=== PATIENT | female | born 1990 | race American Indian/Alaskan Native ===

== ENCOUNTER 2016-08-15 13:46 | Emergency (ER) | payer SELFPAY ==
[2016-08-15] MEDS ORDERED: MOTRIN PO ONE (19:24)
--- NOTE | 2016-08-15 20:30 | Emergency Department Report ---
ED ENT HPI - General Chief complaint: Upper Respiratory Infection Stated complaint: KNOT IN THROAT/SWELLING/BERE Time Seen by Provider: 08/15/16 19:21 Source: patient Mode of arrival: Ambulatory Limitations: No Limitations - History of Present Illness Initial comments: 26-year-old female past medical history obesity, mononucleosis presents with complaint of one month of sensation of anterior throat discomfort. Patient is awake alert and oriented 3 not in acute distress states that she came to the ED because she is unclear on the symptoms of mononucleosis. Patient states she had an episode of mononucleosis within the last year and over the last 3 weeks has experienced minor throat discomfort. Patient states that she wanted reassurance that this is not a severe throat infection. Patient is speaking in full sentences no wheezing no stridor denies any nausea vomiting no chest pain no palpitations. Denies any abdominal pain. No rash reported. Denies using any medicines for her sore throat. Denies any difficulty swallowing liquids or solids. MD complaint: sore throat Onset/Timin -: month(s) Location: throat Severity: moderate Quality: aching Context-Epistaxis: history of similar - Related Data Previous Rx's Medication Instructions Recorded Last Taken Type ALBUTEROL Inhaler [ProAir HFA 2 puff IH QID PRN #1 dispenser 02/25/16 Unknown Rx Inhaler] ALBUTEROL NEB's [Proventil 0.083% 2.5 mg IH PRN #12 ml 02/25/16 Unknown Rx NEBS] Prednisone [predniSONE 10 mg 10 mg PO .TAPER #1 tab.ds.pk 02/25/16 Unknown Rx (6-Day Pack, 21 Tabs)] Naproxen [Naprosyn TAB] 500 mg PO BID PRN #20 tablet 08/15/16 Unknown Rx Allergies Allergy/AdvReac Type Severity Reaction Status Date / Time No Known Allergies Allergy Verified 02/25/16 14:14 ED Dental HPI - General Chief complaint: Upper Respiratory Infection Stated complaint: KNOT IN THROAT/SWELLING/BERE Time Seen by Provider: 08/15/16 19:21 Source: patient Mode of arrival: Ambulatory Limitations: No Limitations - Related Data Previous Rx's Medication Instructions Recorded Last Taken Type ALBUTEROL Inhaler [ProAir HFA 2 puff IH QID PRN #1 dispenser 02/25/16 Unknown Rx Inhaler] ALBUTEROL NEB's [Proventil 0.083% 2.5 mg IH PRN #12 ml 02/25/16 Unknown Rx NEBS] Prednisone [predniSONE 10 mg 10 mg PO .TAPER #1 tab.ds.pk 02/25/16 Unknown Rx (6-Day Pack, 21 Tabs)] Naproxen [Naprosyn TAB] 500 mg PO BID PRN #20 tablet 08/15/16 Unknown Rx Allergies Allergy/AdvReac Type Severity Reaction Status Date / Time No Known Allergies Allergy Verified 02/25/16 14:14 ED Review of Systems ROS: Stated complaint: KNOT IN THROAT/SWELLING/BERE Other details as noted in HPI Constitutional: denies: chills, fever Eyes: denies: eye pain, eye discharge, vision change ENT: throat pain. denies: ear pain Respiratory: denies: cough, shortness of breath, wheezing Cardiovascular: denies: chest pain, palpitations Endocrine: no symptoms reported Gastrointestinal: denies: abdominal pain, nausea, diarrhea Genitourinary: denies: urgency, dysuria, discharge Musculoskeletal: denies: back pain, joint swelling, arthralgia Skin: denies: rash, lesions Neurological: denies: headache, weakness, paresthesias Psychiatric: denies: anxiety, depression Hematological/Lymphatic: denies: easy bleeding, easy bruising ED Past Medical Hx - Past Medical History Hx Asthma: Yes Additional medical history: Mononucleosis - Surgical History Past Surgical History?: No - Social History Smoking Status: Never Smoker Substance Use Type: None - Medications Home Medications: Home Medications Medication Instructions Recorded Confirmed Last Taken Type ALBUTEROL Inhaler [ProAir HFA 2 puff IH QID PRN #1 dispenser 02/25/16 Unknown Rx Inhaler] ALBUTEROL NEB's [Proventil 0.083% 2.5 mg IH PRN #12 ml 02/25/16 Unknown Rx NEBS] Prednisone [predniSONE 10 mg 10 mg PO .TAPER #1 tab.ds.pk 02/25/16 Unknown Rx (6-Day Pack, 21 Tabs)] Naproxen [Naprosyn TAB] 500 mg PO BID PRN #20 tablet 08/15/16 Unknown Rx ED Physical Exam - General Limitations: No Limitations General appearance: alert, in no apparent distress - Head Head exam: Present: atraumatic, normocephalic - Eye Eye exam: Present: normal appearance, PERRL, EOMI - ENT ENT exam: Present: mucous membranes moist - Neck Neck exam: Present: normal inspection, lymphadenopathy (mild anterior cervicallymphadenopathy) - Respiratory Respiratory exam: Present: normal lung sounds bilaterally. Absent: respiratory distress - Cardiovascular Cardiovascular Exam: Present: regular rate, normal rhythm. Absent: systolic murmur, diastolic murmur, rubs, gallop - GI/Abdominal GI/Abdominal exam: Present: soft, normal bowel sounds - Extremities Exam Extremities exam: Present: normal inspection - Back Exam Back exam: Present: normal inspection - Neurological Exam Neurological exam: Present: alert, oriented X3, CN II-XII intact, normal gait - Psychiatric Psychiatric exam: Present: normal affect, normal mood - Skin Skin exam: Present: warm, dry, intact, normal color. Absent: rash ED Course Vital Signs 08/15/16 08/15/16 14:39 19:32 Temperature 98.4 F Pulse Rate 73 Respiratory 18 20 Rate Blood Pressure 133/93 O2 Sat by Pulse 100 Oximetry ED Medical Decision Making - Medical Decision Making A/P: Pharyngitis 1- patient has clinical signs potentially of mononucleosis mild cervical adenopathy has history of mononucleosis denies any fevers chills no significant evidence of pharyngitis no abdominal pain. 2-patient to follow up with primary care 3-naproxen when necessary 4-I educated patient on symptoms of mononucleosis Critical care attestation.: If time is entered above; I have spent that time in minutes in the direct care of this critically ill patient, excluding procedure time. ED Disposition Clinical Impression: Cervical lymphadenopathy Disposition: DISCHARGED TO HOME OR SELFCARE Is pt being admited?: No Does the pt Need Aspirin: No Condition: Stable Instructions: Mononucleosis (ED), Lymphadenopathy (ED) Prescriptions: Naproxen [Naprosyn TAB] 500 mg PO BID PRN #20 tablet PRN Reason: Pain Referrals: [facility] [Outside] - 3-5 Days [facility] [Outside] - 3-5 Days Forms: Work/School Release Form(ED) Time of Disposition: 20:39
[2016-08-15 21:00] VITALS: BP 132/88
== END 2016-08-15 21:00 | disposition home or self-care (01) ==
LOC: ED 13:46
DX: R59.0 Localized enlarged lymph nodes (principal); J45.909 Unspecified asthma, uncomplicated
CPT/HCPCS: 87116; 87430; 99282

== ENCOUNTER 2017-04-01 08:22 | Emergency (ER) | payer OTHER ==
[2017-04-01 08:33] VITALS: BP 119/70
[2017-04-01 09:01] LABS: Bacteria,Urine 1+ /HPF (Negative); Bilirubin,Urine NEG (Negative); Blood,Urine SM (Negative); Ketones,Urine NEG (Negative); Leukocyte Esterase,Urine LG (Negative); Mucus,Urine 1+ /HPF; Nitrite,Urine NEG (Negative); Urobilinogen,Urine < 2.0 mg/dL (<2.0)
[2017-04-01] MEDS ORDERED: ROCEPHIN IM ONE (09:33)
[2017-04-01] MEDS ORDERED: XYLOCAINE 1% MPF 5 mL INFILTRATI ONE (09:33)
[2017-04-01] MEDS ORDERED: ZITHROMAX PO ONE (09:33)
--- NOTE | 2017-04-01 09:44 | Emergency Department Report ---
ED Dysuria HPI - HPI Chief Complaint: Urogenital-Female Stated Complaint: VAG DISCHARGE Time Seen by Provider: 04/01/17 08:55 Duration: 3 Days Severity: Mild (NEW SEX PARTNER; THIS PERSONS X IS W A MAN WHO HAS SEX W MEN) Symptoms: Dysuria: No, Frequency: No, Suprapubic Pain: No, Flank Pain: No, Fever : No, Hematuria: No, Abdominal Pain: No, Previous UTI's: No ED Review of Systems ROS: Stated complaint: VAG DISCHARGE Other details as noted in HPI Comment: All other systems reviewed and negative Genitourinary: discharge (YELLOW) ED Past Medical Hx - Past Medical History Previous Medical History?: Yes Hx Asthma: Yes Additional medical history: Mononucleosis - Surgical History Past Surgical History?: No - Social History Smoking Status: Never Smoker Substance Use Type: None - Medications Home Medications: Home Medications Medication Instructions Recorded Confirmed Last Taken Type ALBUTEROL Inhaler [ProAir HFA 2 puff IH QID PRN #1 dispenser 02/25/16 Unknown Rx Inhaler] ALBUTEROL NEB's [Proventil 0.083% 2.5 mg IH PRN #12 ml 02/25/16 Unknown Rx NEBS] Prednisone [predniSONE 10 mg 10 mg PO .TAPER #1 tab.ds.pk 02/25/16 Unknown Rx (6-Day Pack, 21 Tabs)] Naproxen [Naprosyn TAB] 500 mg PO BID PRN #20 tablet 08/15/16 Unknown Rx Dysuria Exam - Exam General: Vital signs noted. No distress. Alert and acting appropriately. Exam: Yes Moist Mucous Membranes, No CVA Tenderness, No Abdominal Tenderness, No Rigidity or Guarding Labs: Lab Results 04/01/17 Range/Units 08:47 Urine Color Yellow (Yellow) Urine Turbidity Slightly-cloudy (Clear) Urine pH 5.0 (5.0-7.0) Ur Specific [place] 1.026 (1.003-1.030) Urine Protein 30 mg/dl (Negative) mg/dL Urine Glucose (UA) Neg (Negative) mg/dL Urine Ketones Neg (Negative) mg/dL Urine Blood Sm (Negative) Urine Nitrite Neg (Negative) Urine Bilirubin Neg (Negative) Urine Urobilinogen < 2.0 (<2.0) mg/dL Ur Leukocyte Esterase Lg (Negative) Urine WBC (Auto) 179.0 H (0.0-6.0) /HPF Urine RBC (Auto) 27.0 (0.0-6.0) /HPF U Epithel Cells (Auto) 2.0 (0-13.0) /HPF Urine Bacteria (Auto) 1+ (Negative) /HPF Urine Mucus 1+ /HPF ED Course Vital Signs 04/01/17 08:26 Temperature 98.2 F Pulse Rate 91 H Respiratory 18 Rate Blood Pressure 119/70 O2 Sat by Pulse 100 Oximetry - Reevaluation(s) Reevaluation #1: 04/01/17 10:04 PT REQUESTING HIV GIVEN HX- SEE HPI EMPIRIC TX - RO AND AZITHROMYCIN VAG EXAM SKIN RED AND IRRITATED YELLOW NON ODOR. DC ED Medical Decision Making - Medical Decision Making SEE NOTE PREG NEG WET PREP NEG NO DYSURIA NO FEVER NO CVA TENDERNESS VAG DC CONCERN FOR STI HIGH RISK NON PROTECTED EXPOSURE OVER 6 W - Differential Diagnosis STD V BV Critical care attestation.: If time is entered above; I have spent that time in minutes in the direct care of this critically ill patient, excluding procedure time. ED Disposition Clinical Impression: STD (female), Vaginitis Disposition: DC-01 TO HOME OR SELFCARE Is pt being admited?: No Does the pt Need Aspirin: No Condition: Stable Instructions: Safe Sex (ED) Referrals: PRIMARY CARE, [Primary Care Provider] - 3-5 Days MIMI LIAZRRAGA MD [Staff Physician] - 3-5 Days Time of Disposition: 09:43
[2017-04-01 10:25] LABS: HIV-1 Antigen p24 Non React (Non React); HIVR-1/2 Ab Non React (Non React)
== END 2017-04-01 10:34 | disposition home or self-care (01) ==
LOC: ED 08:22
DX: A64 Unspecified sexually transmitted disease (principal); N76.0 Acute vaginitis; J45.909 Unspecified asthma, uncomplicated
CPT/HCPCS: 36415; 81001; 81025; 86592; 87210; 87591; 87806; 96372; 99284; J0696

== ENCOUNTER 2017-08-01 11:51 | Emergency (ER) | payer SELFPAY ==
[2017-08-01 12:36] VITALS: BP 135/67
[2017-08-01] MEDS ORDERED: DUONEB *Not for PRN Use IH ONE (12:37)
--- NOTE | 2017-08-01 15:23 | Emergency Department Report ---
HPI - General Chief Complaint: Adult Asthma Time Seen by Provider: 08/01/17 14:21 - HPI HPI: Patient complains shortness breath and wheezing and out of asthma medication. She is requesting a refill on albuterol nebulizer and inhaler. Denies any chest pain. Denies any fever or chills. She said this started yesterday. She doesn't have a primary care doctor. ED Past Medical Hx - Past Medical History Previous Medical History?: Yes Hx Asthma: Yes Additional medical history: Mononucleosis - Surgical History Past Surgical History?: No - Family History Family history: no significant - Social History Smoking Status: Never Smoker Substance Use Type: None - Medications Home Medications: Home Medications Medication Instructions Recorded Confirmed Last Taken Type ALBUTEROL Inhaler [ProAir HFA 2 puff IH QID PRN #1 dispenser 02/25/16 Unknown Rx Inhaler] ALBUTEROL NEB's [Proventil 0.083% 2.5 mg IH PRN #12 ml 02/25/16 Unknown Rx NEBS] Prednisone [predniSONE 10 mg 10 mg PO .TAPER #1 tab.ds.pk 02/25/16 Unknown Rx (6-Day Pack, 21 Tabs)] Naproxen [Naprosyn TAB] 500 mg PO BID PRN #20 tablet 08/15/16 Unknown Rx ED Review of Systems ROS: Stated complaint: ASTHMA Other details as noted in HPI Comment: All other systems reviewed and negative Constitutional: no symptoms reported ENT: congestion Respiratory: cough, SOB with exertion, wheezing. denies: orthopnea, shortness of breath, SOB at rest, stridor Cardiovascular: denies: chest pain, palpitations, dyspnea on exertion, edema, syncope, paroxysmal nocturnal dyspnea Gastrointestinal: denies: abdominal pain, nausea, vomiting, diarrhea Genitourinary: denies: dysuria, hematuria Musculoskeletal: denies: back pain, joint swelling, arthralgia Skin: denies: rash Neurological: denies: headache, numbness, paresthesias, abnormal gait, vertigo Physical Exam - Physical Exam Vital Signs: Vital Signs 08/01/17 12:32 Temperature 97.3 F L Pulse Rate 82 Respiratory 22 Rate Blood Pressure 135/67 O2 Sat by Pulse 98 Oximetry General: This is a 27-year-old female well-nourished well-developed in no acute distress. Physical Exam: Head: Normocephalic, atraumatic, no abrasion, no bruising and no contusion. Eyes: Biateral pupils equal and reactive to light, bilateral EOM intact.. Bilateral conjunctival and sclera without injection, normal accommodation. No nystagmus Mouth: Mucosa moist, no pharyngeal exudate or erythema. No peritonsillar abscesses. Uvula is midline and oral airways patent. Ears: Bilateral TMs congested without erythema. Bilateral EAC without any redness swelling or drainage. No mastoid bone tenderness Nose: Bilateral nasal mucosa congested with clear drainage. ,Maxillary and frontal sinuses non-tender to palpate. Neck: Supple, No Cervical adenopathy, full range of motion and no C-spine tenderness. No swelling or tracheal deviation normal reflexes Cardiovascular: S1, S2. Regular rate and rhythm. No murmur. Capillary refill is less then 3 seconds. Lungs: Scattered wheezing throughout lung [place]. Normal work of breathing. No chest wall tenderness. No chest contusion. No bruising to chest. Abdomen: Non-tender to palpate in all quadrants, no guarding or rebound tenderness, positive bowel sounds in all quadrants. No CVA tenderness. No hernia, bruit or mass. No rigidity or distention. Extremities: No clubbing, cyanosis or edema. +2 pulses. No neurovascular compromise Skin: Clean, dry and intact. No rash or lesions. Psych: Normal mood and behavior ED Course Vital Signs 08/01/17 12:32 Temperature 97.3 F L Pulse Rate 82 Respiratory 22 Rate Blood Pressure 135/67 O2 Sat by Pulse 98 Oximetry - Reevaluation(s) Reevaluation #1: 08/01/17 15:25 Patient received albuterol and Atrovent in triage area but she still has wheezing. So she'll be given an additional 5 of albuterol, 1 of Atrovent nebulizer and Solu-Medrol injection. Reevaluation #2: 08/01/17 16:10 Patient better after nebulizer treatment and Solu-Medrol. ED Medical Decision Making - Lab Data Lab Results 08/01/17 Range/Units 14:25 Urine Color Yellow (Yellow) Urine Turbidity Clear (Clear) Urine pH 7.0 (5.0-7.0) Ur Specific [place] 1.014 (1.003-1.030) Urine Protein <15 mg/dl (Negative) mg/dL Urine Glucose (UA) Neg (Negative) mg/dL Urine Ketones Neg (Negative) mg/dL Urine Blood Neg (Negative) Urine Nitrite Neg (Negative) Urine Bilirubin Neg (Negative) Urine Urobilinogen < 2.0 (<2.0) mg/dL Ur Leukocyte Esterase Neg (Negative) Urine WBC (Auto) 1.0 (0.0-6.0) /HPF Urine RBC (Auto) 1.0 (0.0-6.0) /HPF U Epithel Cells (Auto) 1.0 (0-13.0) /HPF Urine Mucus Few /HPF - Medical Decision Making ED course: Patient here report that she had run out of her asthma medication which are albuterol inhaler and nebulizer and should like to have a refill and also that she is having an asthma attack. Patient was scattered wheezing to upper lung field she was given albuterol and Atrovent times one and triage area and was given albuterol 5 mg and Atrovent 1 mg nebulizer in ED room. She was also given Solu-Medrol 125 mg IM in the emergency room. Nurses report that patient left room and did not come back. She did get her treatment and that she was feeling better but she did not get prescription because she left. Critical care attestation.: If time is entered above; I have spent that time in minutes in the direct care of this critically ill patient, excluding procedure time. ED Disposition Clinical Impression: Acute asthma exacerbation Qualifiers: Asthma severity: mild Asthma persistence: intermittent Qualified Code(s): J45.21 - Mild intermittent asthma with (acute) exacerbation Disposition: ELOPED Is pt being admited?: No Does the pt Need Aspirin: No Condition: Stable Instructions: Asthma (ED)
[2017-08-01] MEDS ORDERED: PROVENTIL IH ONE (15:24)
[2017-08-01] MEDS ORDERED: ATROVENT IH ONE (15:24)
[2017-08-01 16:53] LABS: Bilirubin,Urine NEG (Negative); Blood,Urine NEG (Negative); Color,Urine Yellow (Yellow); Mucus,Urine FEW /HPF; Protein,Urine <15 mg/dL mg/dL (Negative); Urobilinogen,Urine < 2.0 mg/dL (<2.0)
== END 2017-08-01 17:53 | disposition left against medical advice (07) ==
LOC: ED 11:51
DX: J45.21 Mild intermittent asthma with (acute) exacerbation (principal)
CPT/HCPCS: 81001; 94640; 96372; 99283; J2930

== ENCOUNTER 2019-08-19 19:09 | Emergency (ER) | payer SELFPAY ==
--- NOTE | 2019-08-19 20:08 | Emergency Department Report ---
ED General Adult HPI - General Chief complaint: Skin/Abscess/Foreign Body Stated complaint: BREAST PAIN LUMP AND SWELL x1 WEEK Source: patient Mode of arrival: Ambulatory Limitations: No Limitations - History of Present Illness Initial comments: Patient is a nulliparous 29-year-old morbidly obese -Lith[place] female with a history of asthma presents to the ED with complaint of acute onset persistent bilateral breast pain worse in the left breast with some lumps for the last 1 week. Patient's LMP was August 02, 2019. Patient states that in the last 2 days the pain in the left breast has worsened with the development of the lumps. Patient states that she was concerned because her mother just of breast cancer complications about 3 months ago having been diagnosed with stage IV breast cancer 8 months ago. Patient states that her last mammogram was all normal. Patient denies fever, chills, nausea, vomiting, traumatic injury, heavy lifting, shortness of breath, chest pain, diaphoresis, pain in the axilla regions bilaterally. MD Complaint: Bilateral breast pain, worse on the left breast -: Sudden, week(s) (1) Location: chest (bilateral breasts) Radiation: non-radiation Quality: aching, sharp Consistency: constant Improves with: none Worsens with: none Associated Symptoms: denies other symptoms. denies: confusion, chest pain, c ough, diaphoresis, fever/chills, headaches, loss of appetite, malaise, nausea/vomiting, rash, seizure, shortness of breath, syncope, weakness, other Treatments Prior to Arrival: none - Related Data Previous Rx's Medication Instructions Recorded Last Taken Type ALBUTEROL NEB's [Proventil 0.083% 2.5 mg IH PRN #12 ml 02/25/16 Unknown Rx NEBS] Albuterol INH(or & Nicu Only) 2 puff IH QID PRN #1 dispenser 02/25/16 Unknown Rx [ProAir HFA Inhaler] Prednisone [predniSONE 10 mg 10 mg PO .TAPER #1 tab.ds.pk 02/25/16 Unknown Rx (6-Day Pack, 21 Tabs)] Naproxen [Naprosyn TAB] 500 mg PO BID PRN #20 tablet 08/15/16 Unknown Rx Ibuprofen [Motrin] 800 mg PO Q8HR PRN #30 tablet 08/19/19 Unknown Rx Allergies Allergy/AdvReac Type Severity Reaction Status Date / Time No Known Allergies Allergy Verified 04/01/17 08:26 ED Review of Systems ROS: Stated complaint: BREAST PAIN LUMP AND SWELL x1 WEEK Other details as noted in HPI Constitutional: denies: chills, fever Eyes: denies: eye pain, eye discharge, vision change ENT: denies: ear pain, throat pain Respiratory: other (Bilateral breast pain, worse on left than right). denies: cough, shortness of breath, wheezing Cardiovascular: denies: chest pain, palpitations Endocrine: no symptoms reported Gastrointestinal: denies: abdominal pain, nausea, diarrhea Genitourinary: denies: urgency, dysuria, discharge Musculoskeletal: denies: back pain, joint swelling, arthralgia Skin: denies: rash, lesions Neurological: denies: headache, weakness, paresthesias Psychiatric: denies: anxiety, depression Hematological/Lymphatic: denies: easy bleeding, easy bruising ED Past Medical Hx - Past Medical History Previous Medical History?: Yes Hx Asthma: Yes Additional medical history: Mononucleosis - Surgical History Past Surgical History?: No - Social History Smoking Status: Never Smoker Substance Use Type: Marijuana - Medications Home Medications: Home Medications Medication Instructions Recorded Confirmed Last Taken Type ALBUTEROL NEB's [Proventil 0.083% 2.5 mg IH PRN #12 ml 02/25/16 Unknown Rx NEBS] Albuterol INH(or & Nicu Only) 2 puff IH QID PRN #1 dispenser 02/25/16 Unknown Rx [ProAir HFA Inhaler] Prednisone [predniSONE 10 mg 10 mg PO .TAPER #1 tab.ds.pk 02/25/16 Unknown Rx (6-Day Pack, 21 Tabs)] Naproxen [Naprosyn TAB] 500 mg PO BID PRN #20 tablet 08/15/16 Unknown Rx Ibuprofen [Motrin] 800 mg PO Q8HR PRN #30 tablet 08/19/19 Unknown Rx ED Physical Exam - General Limitations: No Limitations General appearance: alert, in no apparent distress, anxious - Head Head exam: Present: atraumatic, normocephalic, normal inspection - Eye Eye exam: Present: normal appearance, PERRL, EOMI Pupils: Present: normal accommodation - ENT ENT exam: Present: normal exam, normal orophraynx, mucous membranes moist, TM's normal bilaterally, normal external ear exam - Neck Neck exam: Present: normal inspection, full ROM - Respiratory Respiratory exam: Present: normal lung sounds bilaterally, other (Palpable moderate bilateral breast tenderness with palpable lumps in the left breast. Female RN Blankbook Forwarder Ms Varma present). Absent: respiratory distress, wheezes, rales, rhonchi, stridor, chest wall tenderness, accessory muscle use, decreased breath sounds, prolonged expiratory - Cardiovascular Cardiovascular Exam: Present: normal rhythm, tachycardia, normal heart sounds. Absent: systolic murmur, diastolic murmur, rubs, gallop - GI/Abdominal GI/Abdominal exam: Present: soft, normal bowel sounds. Absent: distended, tenderness, guarding, hyperactive bowel sounds, hypoactive bowel sounds, organomegaly - Extremities Exam Extremities exam: Present: normal inspection, full ROM, normal capillary refill - Back Exam Back exam: Present: normal inspection, full ROM. Absent: tenderness, CVA tenderness (R), CVA tenderness (L), muscle spasm, paraspinal tenderness, vertebral tenderness - Neurological Exam Neurological exam: Present: alert, oriented X3, CN II-XII intact, normal gait, reflexes normal - Psychiatric Psychiatric exam: Present: normal affect, normal mood - Skin Skin exam: Present: warm, dry, intact, normal color. Absent: rash ED Course Vital Signs 08/19/19 19:13 Temperature 98.0 F Pulse Rate 100 H Respiratory 18 Rate Blood Pressure 150/87 O2 Sat by Pulse 99 Oximetry ED Medical Decision Making - Medical Decision Making This is a nulliparous 29-year-old morbidly obese -Lithuanian female with a history of asthma presents to the ED with complaint of acute onset persistent bilateral breast pain worse in the left breast with some lumps for the last 1 week. Patient's LMP was August 02, 2019. Patient states that in the last 2 days the pain in the left breast has worsened with the development of the lumps. Patient states that she was concerned because her mother just of breast cancer complications about 3 months ago having been diagnosed with stage IV breast cancer 8 months ago. Patient states that her last mammogram was all normal. In the ED, patient is alert and oriented x3, anxious and tachycardic in triage but in no acute distress. Physical exam was positive for palpable lumps on the left breast with moderate bilateral breast tenderness, worse on the left than right breast. Based on the patient's LMP, history and physical exam findings, patient symptoms are likely due to fibrocystic breast changes or fibrocystic breast disease. Patient advised to take pain medications, and and sure that she follows up with a [employer] physician in 3 to 5 days for reevaluation and consider having another mammogram to rule out any life-threatening emergencies or diseases of the breast. Patient was otherwise advised to return to the ED immediately if symptoms get worse. - Differential Diagnosis Fibrocystic breast disease; Fibrocystic breast changes; Mastitis; Cancer Critical care attestation.: If time is entered above; I have spent that time in minutes in the direct care of this critically ill patient, excluding procedure time. ED Disposition Clinical Impression: Bilateral fibrocystic breast disease (FCBD) Fibrocystic breast changes Qualifiers: Laterality: left Qualified Code(s): N60.12 - Diffuse cystic mastopathy of left breast Disposition: TO HOME OR SELFCARE Is pt being admited?: No Does the pt Need Aspirin: No Condition: Stable Instructions: Breast Care for the Non-breast Feeding Woman (ED), Breast Self- exam (ED) Additional Instructions: Take medication as needed for pain with food, follow-up with the [facility] [employer]PER[employer] physician as advised for further evaluation. Consider having a mammogram in the next 7 to 10 days to further evaluate your breast. Return to the ED immediately if symptoms get worse. Prescriptions: Ibuprofen [Motrin] 800 mg PO Q8HR PRN #30 tablet PRN Reason: Pain , Severe (7-10) Referrals: MILAN BALLESTEROS MD [Staff Physician] - 3-5 Days Time of Disposition: 20:09 Print Language: PERUVIAN
[2019-08-21 12:50] VITALS: BP 136/65
== END 2019-08-19 20:22 | disposition home or self-care (01) ==
LOC: ED 19:09
DX: N60.12 Diffuse cystic mastopathy of left breast (principal); N60.11 Diffuse cystic mastopathy of right breast; J45.909 Unspecified asthma, uncomplicated; F12.10 Cannabis abuse, uncomplicated; Z79.899 Other long term (current) drug therapy
CPT/HCPCS: 99282

== ENCOUNTER 2021-04-07 15:17 | Emergency (ER) | payer SELFPAY ==
[2021-04-07 15:35] VITALS: BP 108/53
--- NOTE | 2021-04-07 18:05 | Emergency Department Report ---
ED General Adult HPI - General Chief complaint: Skin/Abscess/Foreign Body Stated complaint: BREAST TISSUE Time Seen by Provider: 04/07/21 17:27 Source: patient Mode of arrival: Ambulatory Limitations: No Limitations - History of Present Illness Initial comments: 30-year-old female presents to the ER today with complaints of left breast discomfort. Patient states that she is really having this burning sensation in her left breast and pain for the past few months. She states that during her menstrual cycle she noticed that the breast swells and she has noticed some redness to the breast off and on. She states that she has not felt any specific mass she has not seen any bruising or has had any nipple discharge or dimpling to her breasts. She states that she had similar symptoms back in 2019 and had a mammogram and during that time she was diagnosed with fibrocystic breast disease she also has a history of really enlarged breast. She states but was concerned that her mom about a year ago with breast cancer and so she wanted to get checked. She states currently she does not have medical insurance and does not have an [facility]. Her last menstrual cycle was 11 days ago. MD Complaint: Left breast discomfor -: month(s) - Related Data Previous Rx's Medication Instructions Recorded Last Taken Type ALBUTEROL NEB's [Proventil 0.083% 2.5 mg IH PRN #12 ml 02/25/16 Unknown Rx NEBS] Albuterol Mdi (or & Nicu Only) 2 puff IH QID PRN #1 dispenser 02/25/16 Unknown Rx [ProAir HFA Inhaler] Prednisone [predniSONE 10 mg 10 mg PO .TAPER #1 tab.ds.pk 02/25/16 Unknown Rx (6-Day Pack, 21 Tabs)] Naproxen [Naprosyn TAB] 500 mg PO BID PRN #20 tablet 08/15/16 Unknown Rx Ibuprofen [Motrin 800 MG tab] 800 mg PO Q8HR PRN #30 tablet 04/07/21 Unknown Rx Allergies Allergy/AdvReac Type Severity Reaction Status Date / Time No Known Allergies Allergy Verified 04/01/17 08:26 ED Review of Systems ROS: Stated complaint: BREAST TISSUE Other details as noted in HPI Comment: All other systems reviewed and negative Constitutional: denies: chills, diaphoresis, fever, malaise, weakness Eyes: denies: eye pain, eye discharge, vision change ENT: denies: ear pain, throat pain, dental pain, hearing loss, congestion Respiratory: denies: cough, shortness of breath, SOB with exertion, SOB at rest, wheezing Genitourinary: denies: urgency, dysuria, frequency, hematuria, discharge, abnormal menses, dyspareunia Musculoskeletal: denies: back pain, joint swelling, arthralgia Skin: other (Left breast pain and swelling). denies: rash, lesions, change in color, change in hair/nails, pruritus Neurological: denies: headache, weakness, numbness, paresthesias, confusion, abnormal gait, vertigo Psychiatric: denies: anxiety, depression, auditory hallucinations, visual hallucinations, homicidal thoughts, suicidal thoughts Hematological/Lymphatic: denies: easy bruising ED Past Medical Hx - Past Medical History Hx Asthma: Yes Additional medical history: Mononucleosis - Social History Substance Use Type: None - Medications Home Medications: Home Medications Medication Instructions Recorded Confirmed Last Taken Type ALBUTEROL NEB's [Proventil 0.083% 2.5 mg IH PRN #12 ml 02/25/16 Unknown Rx NEBS] Albuterol Mdi (or & Nicu Only) 2 puff IH QID PRN #1 dispenser 02/25/16 Unknown Rx [ProAir HFA Inhaler] Prednisone [predniSONE 10 mg 10 mg PO .TAPER #1 tab.ds.pk 02/25/16 Unknown Rx (6-Day Pack, 21 Tabs)] Naproxen [Naprosyn TAB] 500 mg PO BID PRN #20 tablet 08/15/16 Unknown Rx Ibuprofen [Motrin 800 MG tab] 800 mg PO Q8HR PRN #30 tablet 04/07/21 Unknown Rx ED Physical Exam - General Limitations: No Limitations General appearance: alert, in no apparent distress, obese - Head Head exam: Present: atraumatic, normocephalic, normal inspection - Neck Neck exam: Present: normal inspection, full ROM. Absent: meningismus - Respiratory Respiratory exam: Present: normal lung sounds bilaterally, other (Patient has very large breasts bilaterally. Examination does not show any area of tenderness, no mass, no nipple discharge, no dimpling noted to the tissue, no erythema or bruising noted.). Absent: respiratory distress, wheezes, rales, rhonchi, stridor - Cardiovascular Cardiovascular Exam: Present: regular rate, normal rhythm, normal heart sounds - Neurological Exam Neurological exam: Present: alert, oriented X3, CN II-XII intact, normal gait - Psychiatric Psychiatric exam: Present: normal affect, normal mood - Skin Skin exam: Present: intact ED Course Vital Signs 04/07/21 15:33 Temperature 98.3 F Pulse Rate 83 Respiratory 18 Rate Blood Pressure 108/53 O2 Sat by Pulse 98 Oximetry ED Medical Decision Making - Medical Decision Making Patient does have very large breasts on exam, and she has a known history of fibrocystic breast disease, these could be the cause of her discomfort, but at this time exam does not suggest infection, no appreciation for any mass or lumps, no nipple discharge, no bruising or any other abnormality seen on exam to her breasts. She is not currently breast-feeding. Her last menstrual cycle was 11 days ago and she is not concerned for . Informed patient that the best thing she would need at this time is to have another mammogram done especially to her left breast since she is having symptoms as this would be the test of choice to rule out any abnormality. Unfortunately we are not doing any mammograms through the ER but I will give her a referral to local [facility] to get that done. In the meantime recommend NSAIDs and trying vitamin E to see if help with the pain. Also discussed with her that if her mammogram does come ba ck normal she will have to consider seeing a plastic surgeon to consider breast reduction. Patient expressed on understanding and agree with plan. Patient was stable at time of discharge. Critical care attestation.: If time is entered above; I have spent that time in minutes in the direct care of this critically ill patient, excluding procedure time. ED Disposition Clinical Impression: Breast pain, left, Macromastia, History of fibrocystic disease of breast Disposition: HOME / SELF CARE / HOMELESS Is pt being admited?: No Does the pt Need Aspirin: No Condition: Stable Instructions: Breast Tenderness Additional Instructions: Referral to [facility] will be given to you on your discharge instructions. I do recommend following up with them once for outpatient mammogram to further evaluate your breast pain. In the meantime I recommend that you take ibuprofen for pain and you can also take vitamin E. Return to the ER if anything changes or worsens in any way. Prescriptions: Ibuprofen [Motrin 800 MG tab] 800 mg PO Q8HR PRN #30 tablet PRN Reason: Pain , Severe (7-10) Referrals: [facility] [Provider Group] - 3-5 Days [facility] [Provider Group] - 3-5 Days Time of Disposition: 18:06
== END 2021-04-07 18:32 | disposition home or self-care (01) ==
LOC: ED 15:17
DX: N64.4 Mastodynia (principal); N62 Hypertrophy of breast; N60.29 Fibroadenosis of unspecified breast
CPT/HCPCS: 99281

== ENCOUNTER 2021-10-27 15:29 | Emergency (ER) | payer SELFPAY ==
[2021-10-27 15:48] VITALS: BP 128/72
[2021-10-27] MEDS ORDERED: ALBUTEROL 2.5 MG/3 ML NEBU IH ONE (15:51)
[2021-10-27] MEDS ORDERED: IPRATROPIUM 0.02% NEBU 2.5 ML IH ONE (15:52)
[2021-10-27] MEDS ORDERED: methylPREDNISolone Sod Succinate 125 MG/2 ML INJ IM ONE (17:46)
--- NOTE | 2021-10-27 18:13 | XRay Report ---
XR chest routine 2V INDICATION / CLINICAL INFORMATION: Dyspnea COMPARISON: April 13, 2012 FINDINGS: SUPPORT DEVICES: None. HEART / MEDIASTINUM: No significant abnormality. LUNGS / PLEURA: Lungs are clear. Costophrenic sulci are sharp. No pneumothorax. ADDITIONAL FINDINGS: Remote right seventh rib fracture. No significant additional findings. IMPRESSION: 1. No acute findings. Signer Name: Juan Roman MD Signed: 10/27/2021 6:08 PM Workstation Name: [id number]
--- NOTE | 2021-10-27 18:52 | Emergency Department Report ---
ED Shortness of Breath HPI - General Chief Complaint: Dyspnea/Respdistress Stated Complaint: BERE X2 WK Source: patient Mode of arrival: Ambulatory Limitations: No Limitations - History of Present Illness Initial Comments: 31-year-old female presents to the ED complaining of shortness of breath x2 weeks. She states that she has a history of asthma. She states that she was using her albuterol inhaler prior to arrival without much relief. Denies any intubation. Patient is alert and oriented x3. No acute distress distress. No ill appearance noted. Patient is ambulatory. Denies any chest pain or nausea vomiting. MD Complaint: shortness of breath Onset/Timin -: week(s) Improves With: nothing Worsens With: nothing Known History Of: asthma - Related Data Previous Rx's Medication Instructions Recorded Last Taken Type ALBUTEROL NEB's [Proventil 0.083% 2.5 mg IH PRN #12 ml 02/25/16 Unknown Rx NEBS] Albuterol Mdi (or & Nicu Only) 2 puff IH QID PRN #1 dispenser 02/25/16 Unknown Rx [ProAir HFA Inhaler] Prednisone [predniSONE 10 mg 10 mg PO .TAPER #1 tab.ds.pk 02/25/16 Unknown Rx (6-Day Pack, 21 Tabs)] Naproxen [Naprosyn TAB] 500 mg PO BID PRN #20 tablet 08/15/16 Unknown Rx Ibuprofen [Motrin 800 MG tab] 800 mg PO Q8HR PRN #30 tablet 04/07/21 Unknown Rx predniSONE [Deltasone] 50 mg PO QDAY 5 Days #5 tab 10/27/21 Unknown Rx Allergies Allergy/AdvReac Type Severity Reaction Status Date / Time No Known Allergies Allergy Verified 10/27/21 16:51 ED Review of Systems ROS: Stated complaint: BERE X2 WK Other details as noted in HPI Constitutional: denies: chills, fever Eyes: denies: eye pain, eye discharge, vision change ENT: denies: ear pain, throat pain Respiratory: denies: cough, shortness of breath, wheezing Cardiovascular: denies: chest pain, palpitations Endocrine: no symptoms reported Gastrointestinal: denies: abdominal pain, nausea, diarrhea Genitourinary: denies: urgency, dysuria, discharge Musculoskeletal: denies: back pain, joint swelling, arthralgia Skin: denies: rash, lesions Neurological: denies: headache, weakness, paresthesias Psychiatric: denies: anxiety, depression Hematological/Lymphatic: denies: easy bleeding, easy bruising ED Past Medical Hx - Past Medical History Hx Asthma: Yes Additional medical history: Mononucleosis - Social History Smoking Status: Never Smoker - Medications Home Medications: Home Medications Medication Instructions Recorded Confirmed Last Taken Type ALBUTEROL NEB's [Proventil 0.083% 2.5 mg IH PRN #12 ml 02/25/16 Unknown Rx NEBS] Albuterol Mdi (or & Nicu Only) 2 puff IH QID PRN #1 dispenser 02/25/16 Unknown Rx [ProAir HFA Inhaler] Prednisone [predniSONE 10 mg 10 mg PO .TAPER #1 tab.ds.pk 02/25/16 Unknown Rx (6-Day Pack, 21 Tabs)] Naproxen [Naprosyn TAB] 500 mg PO BID PRN #20 tablet 08/15/16 Unknown Rx Ibuprofen [Motrin 800 MG tab] 800 mg PO Q8HR PRN #30 tablet 04/07/21 Unknown Rx predniSONE [Deltasone] 50 mg PO QDAY 5 Days #5 tab 10/27/21 Unknown Rx ED Physical Exam - General Limitations: No Limitations General appearance: alert, in no apparent distress - Head Head exam: Present: atraumatic, normocephalic - Eye Eye exam: Present: normal appearance - ENT ENT exam: Present: mucous membranes moist - Neck Neck exam: Present: normal inspection - Respiratory Respiratory exam: Present: normal lung sounds bilaterally. Absent: respiratory distress - Cardiovascular Cardiovascular Exam: Present: regular rate, normal rhythm. Absent: systolic murmur, diastolic murmur, rubs, gallop - GI/Abdominal GI/Abdominal exam: Present: soft, normal bowel sounds - Extremities Exam Extremities exam: Present: normal inspection - Back Exam Back exam: Present: normal inspection - Neurological Exam Neurological exam: Present: alert, oriented X3 - Psychiatric Psychiatric exam: Present: normal affect, normal mood - Skin Skin exam: Present: warm, dry, intact, normal color. Absent: rash ED Course Vital Signs 10/27/21 10/27/21 10/27/21 15:44 16:52 19:14 Temperature 98.1 F Pulse Rate 102 H 96 H Pulse Rate [ 108 H Anterior Bilateral] Respiratory 18 18 Rate Respiratory 18 Rate [Anterior Bilateral] Blood Pressure 128/72 O2 Sat by Pulse 97 98 Oximetry ED Medical Decision Making - Radiology Data [facility] [address] [place] [address] XRay Report Signed Patient: SKYLAR WAITE MR#: [id number] : 1990 Acct:[id number] Age/Sex: 31 / F ADM Date: 10/27/21 Loc: ED Attending Dr: Ordering Physician: RUDDY LEDEZMA Date of Service: 10/27/21 Procedure(s): XR chest routine 2V Accession Number(s): [id number] cc: RUDDY LEDEZMA Fluoro Time In Minutes: XR chest routine 2V INDICATION / CLINICAL INFORMATION: Dyspnea COMPARISON: April 13, 2012 FINDINGS: SUPPORT DEVICES: None. HEART / MEDIASTINUM: No significant abnormality. LUNGS / PLEURA: Lungs are clear. Costophrenic sulci are sharp. No pneumothorax. ADDITIONAL FINDINGS: Remote right seventh rib fracture. No significant additional findings. IMPRESSION: 1. No acute findings. Signer Name: Juan Roman MD Signed: 10/27/2021 6:08 PM Workstation Name: [id number] Transcribed By: CS Dictated By: Juan Roman MD Electronically Authenticated By: Juan Roman MD Signed Date/Time: 10/27/211807 DD/ 07 TD/TT: - Medical Decision Making 31-year-old female presents to the ED complaining of shortness of breath x2 weeks. She states that she has a history of asthma. She states that she was using her albuterol inhaler prior to arrival without much relief. Denies any intubation. Patient is alert and oriented x3. No acute distress distress. No ill appearance noted. Patient is ambulatory. Denies any chest pain or nausea vomiting. Physical examination is unremarkable Rechecked the patient is resting quietly quietly and comfortable and feeling better. I discussed the results of diagnostic study, my clinical impression and the plan for further treatment with the patient. Patient agrees with plan and discharge at this present time. All question addressed. I have given the patient instruction regarding a diagnosis ,expectation ,follow- up and return precaution. I explained to the patient that emergent condition may arise and to return to the ED for new worsen and any new persisting condition. I have explained the importance of following up with the primary care physician or referral physician listed below has instructed. The patient verbalized understanding of discharge instruction. Critical care attestation.: If time is entered above; I have spent that time in minutes in the direct care of this critically ill patient, excluding procedure time. ED Disposition Clinical Impression: Asthma Qualifiers: Asthma severity: mild Asthma persistence: intermittent Asthma complication type: unspecified Qualified Code(s): J45.20 - Mild intermittent asthma, uncomplicated Disposition: 01 HOME / SELF CARE / HOMELESS Is pt being admited?: No Does the pt Need Aspirin: No Condition: Stable Instructions: Asthma, Adult, Asthma (ED) Additional Instructions: take medication as prescribed Follow-up with primary care doctor return the ED for any worsening symptom Prescriptions: predniSONE [Deltasone] 50 mg PO QDAY 5 Days #5 tab Referrals: DARINEL DANG MD [Staff Physician] - 3-5 Days [facility] [Provider Group] - 3-5 Days Forms: Work/School Release Form(ED)
== END 2021-10-27 19:14 | disposition home or self-care (01) ==
LOC: ED 15:29
DX: J45.909 Unspecified asthma, uncomplicated (principal)
CPT/HCPCS: 71046; 94640; 96372; 99283; J2930; 94644

== ENCOUNTER 2021-12-09 09:31 | Emergency (ER) | payer SELFPAY ==
[2021-12-09 10:57] VITALS: BP 107/74
[2021-12-09 13:02] LABS: Alanine Aminotransferase 43 units/L (7-56); BUN/Creatinine Ratio 10; Blood Urea Nitrogen 8 mg/dL (7-17); Calcium 9.4 mg/dL (8.4-10.2); Hemolysis Index 0
[2021-12-09 13:04] LABS: Hematocrit 40.3 % (30.3-42.9); Hemoglobin 12.9 gm/dl (10.1-14.3); Mean Corpuscular HGB Conc 32 % (30-34); Mean Corpuscular Volume 84 fl (79-97); Platelet Count 240 K/mm3 (140-440); Red Blood Count 4.77 M/mm3 (3.65-5.03); Red Cell Distribution Width 15.3 % (13.2-15.2)
[2021-12-09 13:16] LABS: Color,Urine Yellow (Yellow); HCG Qualitative,Urine Negative (Negative)
--- NOTE | 2021-12-09 13:46 | Emergency Department Report ---
ED Abdominal Pain HPI - General Chief Complaint: Abdominal Pain Stated Complaint: PAINFUL PELVIC PAIN SINCE OCTOBER Time Seen by Provider: 12/09/21 11:20 Source: patient Mode of arrival: Ambulatory Limitations: Language Barrier - History of Present Illness Initial Comments: P 31-year-old female presenting with pelvic pain since October. Patient reports she had a cold back pain and had a lot of coughing episodes and she thinks she may has pulled or sprained a muscle. No fever no nausea vomiting. No dysuria no vaginal pain no flank pain. Also requesting refill of her asthma medications. She denies any URI symptoms, she denies any wheezing shortness of breath cough cold congestion -: Gradual, month(s) Radiation: none Migration to: no migration Severity: mild Quality: aching Consistency: intermittent Worsens With: nothing Associated Symptoms: denies other symptoms. denies: nausea, vomiting, diarrhea, chills, constipation, dysuria, hematemesis, melena - Related Data Previous Rx's Medication Instructions Recorded Last Taken Type Ibuprofen [Motrin 800 MG tab] 800 mg PO Q8HR PRN #30 tablet 04/07/21 Unknown Rx predniSONE [Deltasone] 50 mg PO QDAY 5 Days #5 tab 10/27/21 Unknown Rx ALBUTEROL NEB's [Proventil 0.083% 2.5 mg IH PRN #12 ml 12/09/21 Unknown Rx NEBS] Albuterol Mdi (or & Nicu Only) 2 puff IH QID PRN #1 dispenser 12/09/21 Unknown Rx [ProAir HFA Inhaler] Cyclobenzaprine [Flexeril] 10 mg PO TID PRN #30 12/09/21 Unknown Rx Naproxen [Naprosyn TAB] 500 mg PO BID PRN #20 tablet 12/09/21 Unknown Rx Prednisone [predniSONE 10 mg 10 mg PO .TAPER #1 tab.ds.pk 12/09/21 Unknown Rx (6-Day Pack, 21 Tabs)] Allergies Allergy/AdvReac Type Severity Reaction Status Date / Time No Known Allergies Allergy Verified 12/09/21 10:57 ED Review of Systems ROS: Stated complaint: PAINFUL PELVIC PAIN SINCE OCTOBER Other details as noted in HPI Comment: All other systems reviewed and negative Gastrointestinal: denies: abdominal pain, nausea, vomiting Genitourinary: denies: urgency, dysuria, frequency Musculoskeletal: as per HPI ED Past Medical Hx - Past Medical History Hx Asthma: Yes Additional medical history: Mononucleosis - Surgical History Past Surgical History?: No - Social History Smoking Status: Never Smoker - Medications Home Medications: Home Medications Medication Instructions Recorded Confirmed Last Taken Type Ibuprofen [Motrin 800 MG tab] 800 mg PO Q8HR PRN #30 tablet 04/07/21 Unknown Rx predniSONE [Deltasone] 50 mg PO QDAY 5 Days #5 tab 10/27/21 Unknown Rx ALBUTEROL NEB's [Proventil 0.083% 2.5 mg IH PRN #12 ml 12/09/21 Unknown Rx NEBS] Albuterol Mdi (or & Nicu Only) 2 puff IH QID PRN #1 dispenser 12/09/21 Unknown Rx [ProAir HFA Inhaler] Cyclobenzaprine [Flexeril] 10 mg PO TID PRN #30 12/09/21 Unknown Rx Naproxen [Naprosyn TAB] 500 mg PO BID PRN #20 tablet 12/09/21 Unknown Rx Prednisone [predniSONE 10 mg 10 mg PO .TAPER #1 tab.ds.pk 12/09/21 Unknown Rx (6-Day Pack, 21 Tabs)] ED Physical Exam - General Limitations: Language Barrier General appearance: alert - Head Head exam: Present: atraumatic - Eye Eye exam: Present: normal appearance - ENT ENT exam: Present: normal exam, normal orophraynx - Neck Neck exam: Present: normal inspection - Respiratory Respiratory exam: Present: normal lung sounds bilaterally. Absent: respiratory distress - Cardiovascular Cardiovascular Exam: Present: regular rate - GI/Abdominal GI/Abdominal exam: Present: soft. Absent: distended, tenderness, guarding - Extremities Exam Extremities exam: Present: normal inspection, full ROM, normal capillary refill. Absent: tenderness, pedal edema, joint swelling - Back Exam Back exam: Present: normal inspection, full ROM. Absent: tenderness, CVA tenderness (R), CVA tenderness (L), muscle spasm - Neurological Exam Neurological exam: Present: alert, oriented X3, CN II-XII intact, normal gait. Absent: motor sensory deficit - Psychiatric Psychiatric exam: Present: normal affect, normal mood - Skin Skin exam: Present: warm, dry, intact ED Course Vital Signs 12/09/21 10:54 Temperature 98.5 F Pulse Rate 66 Respiratory 18 Rate Blood Pressure 107/74 [Left] O2 Sat by Pulse 99 Oximetry ED Medical Decision Making - Lab Data Result diagrams: 12/09/21 11:46 12/09/21 11:46 Critical care attestation.: If time is entered above; I have spent that time in minutes in the direct care of this critically ill patient, excluding procedure time. ED Disposition Clinical Impression: Groin strain, Asthma Disposition: HOME / SELF CARE / HOMELESS Is pt being admited?: No Does the pt Need Aspirin: No Condition: Stable Instructions: Muscle Strain, [id number], Asthma (ED), Abdominal Pain (ED) Prescriptions: Cyclobenzaprine [Flexeril] 10 mg PO TID PRN #30 PRN Reason: Muscle Spasm Naproxen [Naprosyn TAB] 500 mg PO BID PRN #20 tablet PRN Reason: Pain Prednisone [predniSONE 10 mg (6-Day Pack, 21 Tabs)] 10 mg PO .TAPER #1 tab.ds.pk Albuterol Mdi (or & Nicu Only) [ProAir HFA Inhaler] 2 puff IH QID PRN #1 dispenser PRN Reason: Shortness Of Breath ALBUTEROL NEB's [Proventil 0.083% NEBS] 2.5 mg IH PRN #12 ml Referrals: ROJAS PIMENTEL MD [Primary Care Provider] - 3-5 Days Forms: Work/School Release Form(ED)
== END 2021-12-09 15:05 | disposition home or self-care (01) ==
LOC: ED 09:31
DX: S39.011A Strain of muscle, fascia and tendon of abdomen, initial encounter (principal); J45.909 Unspecified asthma, uncomplicated; X58.XXXA Exposure to other specified factors, initial encounter; Y93.89 Activity, other specified; Y92.89 Other specified places as the place of occurrence of the external cause; Y99.8 Other external cause status
CPT/HCPCS: 36415; 80053; 81001; 81025; 83690; 85027; 99283